=== PATIENT | female | born 1965 | race Caucasian/White ===

== ENCOUNTER → 2021-01-07 | Outpatient (CLI) | payer OTHER ==
[~2021-01-07] MED LIST: AMBEREN PO; BIOTIN300 MCG PO; BIOTIN5 M1 PO; CALCIUM 500 +1 EAC4 PO; CALCIUM 600 +1 EAC1 PO; CLONAZEPAM 1 MG1 M1 PO; CLONAZEPAM PO; COD LIVER OIL1 EAC4 PO; DRANOCHOL375 MG PO; EFFEXOR XR150 MG PO; EFFEXOR XR75 MG PO; ESTER-C 500 MG1 EAC1 PO; FIBER1 GM PO; FISH OIL 1,2001 EAC4 PO; FISHOIL; FOLIC ACID 40400 MC1 PO; GREEN TEA1 EACH PO; KLONOPIN0.5 MG PO; MULTIVITAMINS PO; POTASSIUM CITR10 ME1 PO; PROZAC40 MG PO; RISPERDAL0.25 MG PO; TOPAMAX100 MG PO; TOPAMAX25 M1 PO; VIACTIV MULTI-1 EACH PO; VITAMIN B-1100 M1 PO; VITAMIN B-12500 MCG PO; VITAMIN B-6100 MG PO; VITAMIN D1000 UNI2 PO; VITAMIN D400 UNI1 PO; VITAMIN D400 UNI4 PO; VITAMINC500 PO; ZINC CHELATE15 MG PO; ZN-PLUS-PROTEIN15 MG PO; ZYVOX600 MG PO
== END ==
LOC: CAT 08:50
PROVIDERS: ATTEND Family Medicine
DX: Z13.6 Encounter for screening for cardiovascular disorders (principal); E78.00 Pure hypercholesterolemia, unspecified; I25.10 Atherosclerotic heart disease of native coronary artery without angina pectoris